=== PATIENT | female | born 1990 ===

== ENCOUNTER 2022-01-12 06:45 | Inpatient (IN) | payer OTHER ==
[~2022-01-12] VITALS: Ht 152.4 cm; Wt 64.0 kg
[2022-01-12] MEDS ORDERED: PRENATAL TABLE1 EAC3 PO (09:38)
[2022-01-12] MEDS ORDERED: ADULT LOW DOSE81 M1 PO (09:39)
== END 2022-01-14 12:52 | disposition home or self-care (01) | DRG 807 ==
LOC: LDR 06:45 → OB/GYN 19:27
PROVIDERS: ADMIT Obstetrics & Gynecology; ATTEND Obstetrics & Gynecology
PROC: 10E0XZZ Delivery of Products of Conception, External Approach (ICD-10-PCS; principal; 2022-01-12)
PROC: 0KQM0ZZ Repair Perineum Muscle, Open Approach (ICD-10-PCS; 2022-01-12)
PROC: 4A1HXCZ Monitoring of Products of Conception, Cardiac Rate, External Approach (ICD-10-PCS; 2022-01-12)
DX: O70.1 Second degree perineal laceration during delivery (principal); Z37.0 Single live birth; Z3A.39 39 weeks gestation of pregnancy; Z20.822 Contact with and (suspected) exposure to COVID-19